=== PATIENT | female | born 1995 | race African-American/Black ===

== ENCOUNTER 2017-02-09 19:39 | Emergency (ER) | payer OTHER ==
[~2017-02-09] VITALS: Ht 172.7 cm; Wt 107.2 kg
[2017-02-09] MEDS ORDERED: DEXAMETHASONE 4 MG TABLET ONE (20:47)
[2017-02-09] MEDS ORDERED: DEXAMETHASONE 4 MG TABLET PO ONE (21:00)
[2017-02-09 21:54] VITALS: BP 138/81
== END 2017-02-09 21:59 | disposition home or self-care (01) ==
LOC: ED 21:00
DX: J02.0 Streptococcal pharyngitis (principal)
CPT/HCPCS: 36415; 70360; 86308

== ENCOUNTER 2018-08-08 20:11 | Emergency (ER) | payer OTHER ==
[~2018-08-08] VITALS: Ht 172.7 cm; Wt 115.8 kg
[2018-08-08] MEDS ORDERED: LORazepam 1MG TABLET PO ONE (21:00)
[2018-08-08] MEDS ORDERED: LORazepam 1MG TABLET ONE (21:01)
[2018-08-08 22:14] VITALS: BP 136/86
== END 2018-08-08 22:16 | disposition home or self-care (01) ==
LOC: ED 21:26
DX: F41.1 Generalized anxiety disorder (principal); R06.4 Hyperventilation
CPT/HCPCS: 93005; 99284